=== PATIENT | female | born 1990 | race Hispanic/Latino ===

== ENCOUNTER → 2017-11-25 | Outpatient (CLI) | payer OTHER | END | disposition home or self-care (01) | LOC: LAB 09:29 | PROVIDERS: ATTEND Specialist | DX: Z13.79 Encounter for other screening for genetic and chromosomal anomalies (principal) | CPT/HCPCS: 36415; 82105; 82677; 84702; 86336 ==

== ENCOUNTER 2018-05-10 05:21 | Inpatient (IN) | payer OTHER ==
[~2018-05-10] VITALS: Ht 162.6 cm; Wt 102.5 kg
[2018-05-10 05:33] VITALS: BP 143/85
[2018-05-10] MEDS ORDERED: PNV11TAB5 PO (05:40)
[2018-05-10] MEDS ORDERED: LACTATED RINGERS 1000ML 1,000 ML IV PRN (05:59)
[2018-05-10] MEDS ORDERED: AMPICILLIN 2GM+NS 100ML 100 ML IV SCH (06:00)
[2018-05-10] MEDS ORDERED: OXYTOCIN-LR 20 UNITS/1000 ML 1,000 ML IV SCH (06:00)
[2018-05-10] MEDS ORDERED: AMPICILLIN 2GM+NS 100ML 100 ML IV ONE (06:07)
[2018-05-10 06:16] LABS: HEMATOCRIT 37.1 % (36-48); MEAN CORPUSCULAR HEMOGLOBIN 25.1 pg (27.0-33.0); MEAN CORPUSCULAR HGB CONC 32.2 g/dL (32.0-36.0); MEAN CORPUSCULAR VOLUME 77.8 fL (79-99); PLATELET COUNT (AUTO) 323 K/uL (130-400); RED BLOOD CELL COUNT(AUTO) 4.77 MIL/uL (4.00-5.50); RED CELL DISTRIBUTION WIDTH 16.1 % (11.0-15.5)
[2018-05-10] MEDS ORDERED: PROMETHAZINE HCL 25 MG/ML 1ML AMPULE IM SCH ×2 (06:30→08:15)
[2018-05-10] MEDS ORDERED: MEPERIDINE-PF 50 MG/ML SYG IVP SCH (06:30)
[2018-05-10 06:53] LABS: APPEARANCE,URINE Clear (CLEAR); BILIRUBIN,URINE Negative (NEGATIVE); COLOR,URINE Yellow (YELLOW); GLUCOSE, URINE (UA) Negative (NEGATIVE); KETONES,URINE Negative (NEGATIVE); LEUKOCYTE ESTERASE ,URINE Moderate (NEGATIVE); NITRATE,URINE Negative (NEGATIVE); OCCULT BLOOD,URINE Negative (NEGATIVE); PH,URINE 6.5 (5.0-8.0); PROTEIN,URINE Negative (NEGATIVE); UROBILINOGEN,URINE 0.2 mg/dL (0.2-1.0)
[2018-05-10] MEDS ORDERED: OXYTOCIN 10 USP UNITS/ML 20 UNIT in LACTATED RINGERS 1000ML 1,000 ML IV SCH (07:00)
[2018-05-10 07:17] LABS: BACTERIA,URINE Rare /HPF (None Seen); RBC,URINE 0-1 /HPF (0-1); SQUAMOUS EPITHELIAL CELL,UR Moderate /HPF (0-2)
[2018-05-10] MEDS ORDERED: OXYTOCIN 10 USP UNITS/ML ONE ×2 (07:17→10:32)
[2018-05-10 07:20] LABS: RAPID PLASMA REAGIN NONREACTIVE (NONREACTIVE)
[2018-05-10] MEDS ORDERED: MEPERIDINE-PF 25 MG/ML SYG IVP SCH (08:15)
[2018-05-10] MEDS ORDERED: LIDOCAINE HCL 1% 20 ML VIAL ONE (08:32)
[2018-05-10] MEDS ORDERED: ACETAMINOPHEN-CODEINE 300/30MG TAB PO PRN (09:15)
[2018-05-10] MEDS ORDERED: WITCH HAZEL 1 PAD TP PRN (09:15)
[2018-05-10] MEDS ORDERED: MEASLES/MUMPS/RUBELLA VACCINE, LIVE 0.5 ML/VIAL SQ PRN (09:15)
[2018-05-10] MEDS ORDERED: LANOLIN 30GM OINTMENT TP PRN (09:15)
[2018-05-10] MEDS ORDERED: DIPH,PERTUSS(ACELL),TET VAC/PF 0.5 ML VIAL IM PRN (09:15)
[2018-05-10] MEDS ORDERED: BENZOCAINE/LANOLIN/ALOE VERA 60 ML AEROSOL TP PRN (09:15)
[2018-05-10] MEDS ORDERED: AMPICILLIN 1GM+NS 50ML 50 ML IV SCH (10:00)
[2018-05-10 10:45] VITALS: BP 124/79
[2018-05-10 11:43] VITALS: BP 120/76
[2018-05-10] MEDS: IBUPROFEN 800 MG TAB PO PRN (14:44)
[2018-05-10 15:39] VITALS: BP 132/70
[2018-05-10] MEDS: DOCUSATE SODIUM 100 MG CAP PO SCH (20:36)
[2018-05-10 22:17] VITALS: BP 124/72
[2018-05-11] VITALS (8 sets, daily range): BP systolic 96–132; BP diastolic 64–81
[2018-05-11] MEDS: IBUPROFEN 800 MG TAB PO PRN ×2 (08:20→16:48)
[2018-05-11] MEDS: DOCUSATE SODIUM 100 MG CAP PO SCH ×2 (08:20→22:03)
[2018-05-11 09:18] LABS: HEPATITIS Bs ANTIGEN SCREEN P Negative (Negative)
[2018-05-11] MEDS ORDERED: DIPH,PERTUSS(ACELL),TET VAC/PF 0.5 ML VIAL IM ONE (16:00)
[2018-05-12 03:17] VITALS: BP 118/58
[2018-05-12 07:27] VITALS: BP 120/50
[2018-05-12] MEDS: DOCUSATE SODIUM 100 MG CAP PO SCH (08:51)
[2018-05-12] MEDS: IBUPROFEN 800 MG TAB PO PRN (08:53)
[2018-05-12 11:32] VITALS: BP 121/70
== END 2018-05-12 14:10 | disposition home or self-care (01) | DRG 807 ==
LOC: EDH 05:21 → LDH 05:22 → OBSVTOIN 05:59 → LDH 06:00 → WSH 10:45
PROVIDERS: ADMIT Specialist; ATTEND Specialist
PROC: 10E0XZZ Delivery of Products of Conception, External Approach (ICD-10-PCS; principal; 2018-05-10)
PROC: 0KQM0ZZ Repair Perineum Muscle, Open Approach (ICD-10-PCS; 2018-05-10)
PROC: 0W8NXZZ Division of Female Perineum, External Approach (ICD-10-PCS; 2018-05-10)
PROC: 10907ZC Drainage of Amniotic Fluid, Therapeutic from Products of Conception, Via Natural or Artificial Opening (ICD-10-PCS; 2018-05-10)
PROC: 3E0234Z Introduction of Serum, Toxoid and Vaccine into Muscle, Percutaneous Approach (ICD-10-PCS; 2018-05-11)
DX: O99.824 Streptococcus B carrier state complicating childbirth (principal); Z37.0 Single live birth; Z3A.39 39 weeks gestation of pregnancy; O70.1 Second degree perineal laceration during delivery; Z23 Encounter for immunization
CPT/HCPCS: 36415; 81001; 85027; 86592; 86701; 86850; 86900; 86901; 87340; 87390; 90715; A4351; A4606; J0290; J2175; J2550; J2590; J7120

== ENCOUNTER 2018-08-03 19:48 | Emergency (ER) | payer OTHER ==
[~2018-08-03 19:48] MED LIST: PNV11TAB5 PO
[2018-08-03 20:27] LABS: RAPID GROUP A STREP NEGATIVE (NEGATIVE)
[2018-08-03 20:33] LABS: BILIRUBIN,URINE Negative (NEGATIVE); COLOR,URINE Yellow (YELLOW); GLUCOSE, URINE (UA) Negative (NEGATIVE); KETONES,URINE Negative (NEGATIVE); LEUKOCYTE ESTERASE ,URINE Trace (NEGATIVE); NITRATE,URINE Negative (NEGATIVE); OCCULT BLOOD,URINE Negative (NEGATIVE); PH,URINE 6.5 (5.0-8.0); PROTEIN,URINE Negative (NEGATIVE)
[2018-08-03 20:34] LABS: APPEARANCE,URINE CLEAR (CLEAR)
[2018-08-03 20:36] LABS: HCG,QUAL RESULT NEGATIVE (NEGATIVE)
[2018-08-03 20:42] LABS: BACTERIA,URINE Rare /HPF (None Seen); RBC,URINE None Seen /HPF (0-1); SQUAMOUS EPITHELIAL CELL,UR 0-2 /HPF (0-2); WBC,URINE 0-1 /HPF (0-1)
[2018-08-03] MEDS ORDERED: PREDNISONE 20 MG TABLET ONE (20:43)
[2018-08-03] MEDS ORDERED: AZITHROMYCIN 250 MG TABLET PO ONE (20:43)
== END 2018-08-03 20:53 | disposition home or self-care (01) ==
LOC: EDH 19:48
DX: J01.10 Acute frontal sinusitis, unspecified (principal); R50.81 Fever presenting with conditions classified elsewhere
CPT/HCPCS: 81001; 81025; 87804; 87880

== ENCOUNTER 2020-01-31 09:04 | Observation (INO) | payer OTHER ==
[~2020-01-31] VITALS: Ht 162.6 cm; Wt 101.2 kg
== END 2020-01-31 10:00 | disposition home or self-care (01) ==
LOC: LDH 09:04
PROVIDERS: ADMIT Specialist; ATTEND Specialist
DX: O26.893 Other specified pregnancy related conditions, third trimester (principal); Z3A.34 34 weeks gestation of pregnancy
CPT/HCPCS: 59025; 76819; G0378

== ENCOUNTER 2020-02-04 13:08 | Observation (INO) | payer OTHER ==
[~2020-02-04] VITALS: Ht 162.6 cm; Wt 101.6 kg
== END 2020-02-04 14:45 | disposition home or self-care (01) ==
LOC: LDH 13:08
PROVIDERS: ADMIT Specialist; ATTEND Specialist
DX: O26.893 Other specified pregnancy related conditions, third trimester (principal); Z3A.34 34 weeks gestation of pregnancy
CPT/HCPCS: 59025; 76819; G0378

== ENCOUNTER 2020-02-10 15:01 | Inpatient (IN) | payer OTHER ==
[~2020-02-10] VITALS: Ht 162.6 cm; Wt 103.0 kg
[2020-02-10] MEDS: LACTATED RINGERS 1000ML 1,000 ML IV SCH (10:00)
[2020-02-10 15:22] VITALS: BP 125/81
[2020-02-10] MEDS ORDERED: LACTATED RINGERS 1000ML IV PRN (15:30)
[2020-02-10] MEDS ORDERED: MAGNESIUM SULFATE 1,000 ML IV PRN (15:35)
[2020-02-10 15:45] LABS: APPEARANCE,URINE Clear (CLEAR); BILIRUBIN,URINE Negative (NEGATIVE); COLOR,URINE Yellow (YELLOW); GLUCOSE, URINE (UA) Negative (NEGATIVE); KETONES,URINE Negative (NEGATIVE); LEUKOCYTE ESTERASE ,URINE Trace (NEGATIVE); NITRATE,URINE Negative (NEGATIVE); OCCULT BLOOD,URINE Negative (NEGATIVE); PROTEIN,URINE Negative (NEGATIVE)
[2020-02-10] MEDS ORDERED: CALCIUM GLUCONATE 1 GM/10 ML VIAL IV PRN (15:45)
[2020-02-10] MEDS ORDERED: MAGNESIUM 4GM PREMIX 100ML 100 ML IV SCH (15:45)
[2020-02-10] MEDS ORDERED: AMPICILLIN 2GM+NS 100ML 100 ML IV SCH (16:00)
[2020-02-10 16:03] LABS: RBC,URINE 0-1 /HPF (0-1)
[2020-02-10 16:04] LABS: BACTERIA,URINE Rare /HPF (None Seen); SQUAMOUS EPITHELIAL CELL,UR Few /HPF (0-2)
[2020-02-10 16:08] LABS: HEMATOCRIT 31.5 % (36-48); MEAN CORPUSCULAR HEMOGLOBIN 24.5 pg (27.0-33.0); MEAN CORPUSCULAR HGB CONC 32.7 g/dL (32.0-36.0); MEAN CORPUSCULAR VOLUME 74.8 fL (79-99); PLATELET COUNT (AUTO) 337 K/uL (130-400); RED BLOOD CELL COUNT(AUTO) 4.21 MIL/uL (4.00-5.50); RED CELL DISTRIBUTION WIDTH 15.9 % (11.0-15.5); WHITE BLOOD COUNT (AUTO) 11.5 K/uL (4.8-10.8)
[2020-02-10] MEDS: AMPICILLIN 1GM+NS 50ML 50 ML IV SCH (20:30)
[2020-02-10] MEDS ORDERED: PREN1TAB80 PO (21:16)
[2020-02-10] MEDS ORDERED: FERR-82 PO (21:17)
[2020-02-10 22:35] LABS: AMPHET/METH SCREEN,URINE NEGATIVE (NEGATIVE); BARBITURATE SCREEN, URINE NEGATIVE (NEGATIVE); BENZODIAZEPINES SCREEN,URINE NEGATIVE (NEGATIVE); CANNABINOID SCREEN,URINE NEGATIVE (NEGATIVE); COCAINE SCREEN,URINE NEGATIVE (NEGATIVE); OPIATE SCREEN,URINE NEGATIVE (NEGATIVE); PHENCYCLIDINE SCREEN,URINE NEGATIVE (NEGATIVE)
[2020-02-11] MEDS: AMPICILLIN 1GM+NS 50ML 50 ML IV SCH ×2 (00:11→09:30)
[2020-02-11 10:42] LABS: RAPID PLASMA REAGIN NONREACTIVE (NONREACTIVE)
[2020-02-12] MEDS ORDERED: ACETAMINOPHEN 325 MG TAB PO ONE (01:00)
[2020-02-12] MEDS ORDERED: ACETAMINOPHEN 325 MG TAB ONE (01:03)
[2020-02-12] MEDS: LACTATED RINGERS 1000ML 1,000 ML IV SCH (05:45)
[2020-02-12 09:17] LABS: HEPATITIS Bs ANTIGEN SCREEN P Negative (Negative)
[2020-02-12] MEDS ORDERED: LACTATED RINGERS 1000ML 1,000 ML IV PRN (10:12)
[2020-02-12] MEDS ORDERED: AMPICILLIN 2GM+NS 100ML 100 ML IV SCH (11:00)
[2020-02-12] MEDS ORDERED: OXYTOCIN-LR 20 UNITS/1000 ML 1,000 ML IV ONE ×2 (12:06→13:55)
[2020-02-12] MEDS ORDERED: LIDOCAINE HCL 2% 20ML ONE (12:23)
[2020-02-12] MEDS ORDERED: ACETAMINOPHEN 325 MG TAB PO PRN (12:45)
[2020-02-12] MEDS ORDERED: ACETAMINOPHEN-CODEINE 300/30MG TAB PO PRN (12:45)
[2020-02-12] MEDS ORDERED: LANOLIN 30GM OINTMENT TP PRN (12:45)
[2020-02-12] MEDS ORDERED: WITCH HAZEL 1 PAD TP PRN (12:45)
[2020-02-12] MEDS ORDERED: BENZOCAINE/LANOLIN/ALOE VERA 60 ML AEROSOL TP PRN (12:45)
[2020-02-12] MEDS: IBUPROFEN 600 MG TABLET PO PRN (13:58)
[2020-02-12] MEDS: AMPICILLIN 1GM+NS 50ML 50 ML IV SCH ×2 (19:00→23:00)
[2020-02-12 19:49] VITALS: BP 98/60
[2020-02-12] MEDS: DOCUSATE SODIUM 100 MG CAP PO SCH (20:52)
[2020-02-12 23:46] VITALS: BP 101/68
[2020-02-13] MEDS ORDERED: DIPH,PERTUSS(ACELL),TET VAC/PF 0.5 ML VIAL IM ONE ×2 (02:45→16:30)
[2020-02-13] MEDS: AMPICILLIN 1GM+NS 50ML 50 ML IV SCH ×5 (03:00→23:00)
[2020-02-13 04:03] VITALS: BP 102/61
[2020-02-13] MEDS: IBUPROFEN 600 MG TABLET PO PRN ×2 (04:05→16:12)
[2020-02-13 07:40] VITALS: BP 113/76
[2020-02-13] MEDS: DOCUSATE SODIUM 100 MG CAP PO SCH ×2 (10:01→21:06)
[2020-02-13 11:13] VITALS: BP 110/57
[2020-02-13 17:25] VITALS: BP 107/62
[2020-02-13 19:41] VITALS: BP 99/53
[2020-02-13 23:33] VITALS: BP 96/64
[2020-02-14 03:50] VITALS: BP 97/63
[2020-02-14] MEDS: IBUPROFEN 600 MG TABLET PO PRN ×2 (06:29→14:14)
[2020-02-14 07:33] VITALS: BP 102/61
--- NOTE | 2020-02-14 07:45 | NUR ---
DR. JENSEN ROUNDED AND DISCHARGED PATIENT TO HOME. PATIENT IS STABLE AND BABY HAS BEEN DISCHARGED.
--- NOTE | 2020-02-14 09:00 | NUR ---
SS referral for [facility] SW visited pt. who is alert, oriented, smiling, calm and cooperative. Pt.'s spouse at bedside. This is pt's second delivery; other child is 22mos old, current with immunizations and Dr. Hernandez will be tetryl nitrator operator for . All utilities are connected in the home and family has own transportation. Carseat and essentials for are in place. No history of depression, anxiety or other mental illness. Pt. has a strong support system. Pt. and spouse provided with information on services provided by [facility], pt. verbalized an understanding and consented to referral. Referral faxed to [facility]. Pt. voiced no SS needs or concerns. Addendum: 02/14/20 at 1517 by STACIA DUARTE Amended: Links added.
[2020-02-14] MEDS: DOCUSATE SODIUM 100 MG CAP PO SCH (09:34)
[2020-02-14 11:29] VITALS: BP 99/69
--- NOTE | 2020-02-14 14:15 | NUR ---
DISCHARGE INSTRUCTIONS GIVEN AND PATIENT VERBALIZED UNDERSTANDING INSTRUCTIONS GIVEN. PATIENT HAS REMAINED STABLE AND WAS GIVEN MOTRIN FOR CRAMPING.
--- NOTE | 2020-02-14 14:30 | NUR ---
PATIENT WAS TAKEN VIA WHEELCHAIR CARRYING BABY IN ARMS TO FAMILY VEHICLE AND WAS DISCHARGED TO HER SPOUSE IN STABLE CONDITION. PATIENT WAS GIVEN MOTRIN 600MGS FOR CRAMPING PRIOR TO DISCHARGE FOR PAIN OF 3.
== END 2020-02-14 14:30 | disposition home or self-care (01) | DRG 807 ==
LOC: EDH 15:01 → LDH 15:02 → OBSVTOIN 15:02 → WSH 02-12 19:00
PROVIDERS: ADMIT Specialist; ATTEND Specialist
PROC: 10E0XZZ Delivery of Products of Conception, External Approach (ICD-10-PCS; principal; 2020-02-12)
PROC: 0HQ9XZZ Repair Perineum Skin, External Approach (ICD-10-PCS; 2020-02-12)
PROC: 0UQMXZZ Repair Vulva, External Approach (ICD-10-PCS; 2020-02-12)
PROC: 3E0234Z Introduction of Serum, Toxoid and Vaccine into Muscle, Percutaneous Approach (ICD-10-PCS; 2020-02-12)
PROC: 10907ZC Drainage of Amniotic Fluid, Therapeutic from Products of Conception, Via Natural or Artificial Opening (ICD-10-PCS; 2020-02-12)
DX: O45.93 Premature separation of placenta, unspecified, third trimester (principal); Z37.0 Single live birth; O71.82 Other specified trauma to perineum and vulva; O70.0 First degree perineal laceration during delivery; Z3A.35 35 weeks gestation of pregnancy; Z23 Encounter for immunization; O26.893 Other specified pregnancy related conditions, third trimester; Q90.9 Down syndrome, unspecified
CPT/HCPCS: 36415; 76819; 80305; 81001; 83735; 85027; 86592; 86701; 86850; 86900; 86901; 87340; 87390; 90715; 96360; 96361; A4314; A4351; A4606; G0378; J0290; J2590; J3475; J3490; J7120

== ENCOUNTER 2020-05-09 09:37 | Emergency (ER) | payer OTHER ==
[~2020-05-09 09:37] MED LIST changes: +FERR-82 PO; +PREN1TAB80 PO
== END 2020-05-09 12:18 | disposition home or self-care (01) ==
LOC: EDH 09:37
DX: J06.9 Acute upper respiratory infection, unspecified (principal); Z20.828 Contact with and (suspected) exposure to other viral communicable diseases
CPT/HCPCS: 71045; 87426; 87804 ×2; 99284; U0003

== ENCOUNTER → 2020-09-11 | Outpatient (CLI) | payer OTHER ==
[2020-09-11 09:13] LABS: BASOPHILS % (AUTO) 0.8 % (0.0-5.0); EOSINOPHILS % (AUTO) 1.2 % (0.0-8.0); HEMATOCRIT 39.2 % (36-48); LYMPHOCYTES % (AUTO) 35.1 % (21.0-51.0); MEAN CORPUSCULAR HEMOGLOBIN 25.5 pg (27.0-33.0); MEAN CORPUSCULAR HGB CONC 32.4 g/dL (32.0-36.0); MEAN CORPUSCULAR VOLUME 78.6 fL (79-99); MONOCYTES % (AUTO) 5.3 % (3.0-13.0); NEUTROPHILS % (AUTO) 57.4 % (40.0-77.0); PLATELET COUNT (AUTO) 437 K/uL (130-400); RED BLOOD CELL COUNT(AUTO) 4.99 MIL/uL (4.00-5.50); RED CELL DISTRIBUTION WIDTH 16.5 % (11.0-15.5); WHITE BLOOD COUNT (AUTO) 8.3 K/uL (4.8-10.8)
[2020-09-11 09:24] LABS: APPEARANCE,URINE Clear (CLEAR); BILIRUBIN,URINE Negative (NEGATIVE); COLOR,URINE Yellow (YELLOW); GLUCOSE, URINE (UA) Negative (NEGATIVE); KETONES,URINE Negative (NEGATIVE); LEUKOCYTE ESTERASE ,URINE Small (NEGATIVE); NITRATE,URINE Negative (NEGATIVE); OCCULT BLOOD,URINE Small (NEGATIVE); PH,URINE 5.5 (5.0-8.0); PROTEIN,URINE Negative (NEGATIVE); UROBILINOGEN,URINE 0.2 mg/dL (0.2-1.0)
[2020-09-11 09:34] LABS: BACTERIA,URINE Rare /HPF (None Seen); RBC,URINE 0-1 /HPF (0-1); SQUAMOUS EPITHELIAL CELL,UR Rare /HPF (0-2)
[2020-09-11 09:43] LABS: ALBUMIN 4.2 g/dL (3.5-5.0); BILIRUBIN,TOTAL 0.6 mg/dL (0.2-1.0); CREATININE 0.8 mg/dL (0.5-1.5); POTASSIUM 3.9 mmol/L (3.5-5.1); THYROID STIMULATING HORMONE 1.56 uIU/mL (0.36-3.74); TOTAL PROTEIN, SERUM 8.6 g/dL (6.0-8.3)
[2020-09-11 10:21] LABS: ERYTHROCYTE SEDIMENTATION RATE 11 MM/HR (0-20)
== END | disposition home or self-care (01) ==
LOC: LAB 10:00
PROVIDERS: ATTEND Nurse Practitioner Family
DX: Z13.21 Encounter for screening for nutritional disorder (principal); Z13.220 Encounter for screening for lipoid disorders; L30.9 Dermatitis, unspecified; B35.9 Dermatophytosis, unspecified
CPT/HCPCS: 36415; 80053; 80061; 81001; 82306; 84439; 84443; 85025; 85651; 86431

== ENCOUNTER → 2020-11-25 | Outpatient (CLI) | payer OTHER | END | disposition home or self-care (01) | LOC: LAB 09:38 | PROVIDERS: ATTEND Internal Medicine Cardiovascular Disease | DX: Z20.822 Contact with and (suspected) exposure to COVID-19 (principal) | CPT/HCPCS: 87635; C9803 ==

== ENCOUNTER 2022-06-13 18:03 | Emergency (ER) | payer OTHER ==
[~2022-06-13] VITALS: Ht 162.6 cm; Wt 104.3 kg
[2022-06-13 18:33] VITALS: BP 139/88
[2022-06-13] MEDS ORDERED: ONDANSETRON ODT 4MG TAB SL SCH (21:00)
[2022-06-13] MEDS ORDERED: ONDA4TAB10 PO (21:59)
[2022-06-13] MEDS ORDERED: DICY20TA2 PO (21:59)
[2022-06-13] MEDS ORDERED: DICYCLOMINE HCL 20 MG TAB PO SCH (22:00)
== END 2022-06-13 22:27 | disposition home or self-care (01) ==
LOC: EDH 18:03
DX: K59.00 Constipation, unspecified (principal); R11.2 Nausea with vomiting, unspecified; Z20.822 Contact with and (suspected) exposure to COVID-19
CPT/HCPCS: 99283; 87635; 87804 ×2; C9803